=== PATIENT | male | born 2000 | race Two or more races ===

== ENCOUNTER 2024-12-21 00:29 | Emergency (ER) | payer MEDICAID, SELFPAY ==
[2024-12-21 00:32] VITALS: BMI 22.8
[2024-12-21 00:53] VITALS: BP 126/82; PULSE 112; RESP 18; TEMP 37.2; O2SAT 96
--- NOTE | 2024-12-21 00:56 | XR_ITS ---
Examination: Hand, right 3 views Technique: Hand AP, oblique, lateral 3 views Date and time of exam: December 21, 2024 0113 hours INDICATIONS: Patient fell today with injury to the right hand, right hand pain. FINDINGS: Acute fractures distal aspect third metacarpal with minimal angulation at the fracture site Fractures extend to a portion of the metacarpal head. IMPRESSION: Acute fractures distal third metacarpal
--- NOTE | 2024-12-21 00:56 | XR_ITS ---
Examination: Duct and third digit 2 views TECHNIQUE: AP lateral left hand third digit 2 views Date and time: December 21, 2024 0113 hours INDICATIONS: Patient fell today with injury to the hand with third digit pain. FINDINGS: Acute intra-articular fracture distal aspect middle phalanx third digit with 2 mm offset at the fracture site on the AP view No dislocation IMPRESSION: Acute fracture middle phalanx third digit
--- NOTE | 2024-12-21 01:00 | EDNOTE_ITS ---
Upper Extremity Injury RME/HPI General Chief Complaint: Fall Stated Complaint: FALL, I THINK I BROKE MY HANDS Time Seen by Provider: 12/21/24 00:51 Source: patient, RN notes reviewed and old records reviewed Arrival date/time: 12/21/24 00:29 Mode of arrival: ambulatory Limitations: no limitations RME / HPI RME / HPI narrative: 24yom presents to ED for finger and hand pain s/p injury 1 week ago. Patient reports mechanical trip and fall landing on left middle finger and right hand. Pain has not improved over the past week which prompted ED visit tonight. No d eformity reported. 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 Previous Rx's ?Medication ?Instructions ?Recorded ibuprofen 600 mg tablet 600 mg PO Q6H PRN pain #20 t abs 12/21/24 Allergies Allergy/AdvReac Type Severity Reaction Status Date / Time sulfamethoxazole (From Allergy Swelling Verified 12/21/24 00:32 Sulfamethoxazole-Trimethoprim) of Lip/Tongue/Throat trimethoprim (From Allergy Swelling Verified 12/21/24 00:32 Sulfamethoxazole-Trimethoprim) of Lip/Tongue/Throat Review of Systems Review of Systems Systems Reviewed: All systems reviewed, normal except as documented Musculoskeletal Musculoskeletal: Reports arthralgias, Denies deformity, Reports joint swelling, Reports limited range of motion, Denies numbness and Denies tingling Neurologic Neurologic: Denies numbness and Denies tingling Past Medical History Surgical History OTHER SURGICAL HX: denies pshx Social History SMOKING STATUS: Never smoker SUBSTANCE USE: marijuana Past Medical History Comments PMH COMMENT: denies pmhx ED Exam General Limitations: Present no limitations General appearance: Present alert and in no apparent distress Head Head exam: Present atraumatic and normocephalic Eye Eye exam: Present normal appearance, PERRL and EOMI ENT ENT exam: Present normal exam and mucous membranes moist Neck Neck exam: Present normal inspection and full ROM Chest Chest inspection: Present normal inspection and symmetric chest wall rise Respiratory Respiratory exam: Present normal lung sounds bilaterally; Absent respiratory distress Cardiovascular Cardiovascular exam: Present regular rate and normal rhythm Extremities Exam Extremities exam: Present other (Mild tenderness and swelling to DIP of left middle finger and right third MCP. Limited ROM 2/2 pain. <2s cap refill, sensation intact) Neurological Exam Neurological exam: Present alert and oriented X3 Psychiatric Psychiatric exam: Present normal affect and normal mood Skin Skin exam: Present warm, dry, intact and normal color Course Quality Measures none Orders Category Date Time Status Splint / Immobilizer STAT Care 12/21/24 01:30 Completed Splint / Immobilizer STAT Care 12/21/24 01:30 Completed XR finger LT min 2V Stat Exams 12/21/24 00:56 Taken XR hand comp RT min 3V Stat Exams 12/21/24 00:56 Taken Vital Signs Vital signs: Vital Signs Temperature 98.9 F 12/21/24 00:53 Pulse Rate 112 H 12/21/24 00:53 Respiratory Rate 18 12/21/24 00:53 Blood Pressure 126/82 12/21/24 00:53 Pulse Oximetry (%) 96 12/21/24 00:53 Oxygen Delivery Method Room Air 12/21/24 00:53 Procedures -ED Procedure Comment Splint 2 Pre fabricated finger protector left middle finger Sensation, movement, circulation intact distal to finger patient tolerated procedure well, condition improved Splint Fabrication: Clinician Made Type: Other (radial gutter) Reason for Splint: Improve Function, Optimal Positioning, Pain Management, Prevent Deformities and Support Joint/Muscle Circulation Distal to Splint: Yes Movement Distal to Splint: Yes Senation Distal to Splint: Yes Tolerance: Tolerates Well Extremity Injury MDM Narrative MDM Narrative:: 24yom presents to ED for finger and hand pain s/p injury 1 week ago. Patient reports mechanical trip and fall landing on left middle finger and right hand. Pain has not improved over the past week which prompted ED visit tonight. No deformity reported. 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 Patient is neurovascularly intact, compartments soft. Encouraged RICE therapy, Motrin/Tylenol prn pain. Ortho referral given for follow-up and further management. Stable for discharge, RTED precautions given. Patient data External records reviewed:: None (No prior visits) Clinical information provided by:: patient Social determinants that could affect healthcare access:: other (specify) (Poor access to healthcare) Patient has the following chronic illnesses:: none How is presenting disease/condition affected by chronic disease/condition?: no chronic disease Evaluation data The following diagnostics were reviewed and interpreted by me:: radiology exam(s) Lab and/or radiology exams considered but not ordered:: None Interpretation Summary: Finger x-rays: Fracture of distal middle phalanx of third finger Hand x-rays: Fracture of distal third metacarpal Medications / Prescriptions Medications or Prescriptions considered but not ordered:: None Medication administrations:: None Consultations Consultation(s) initiated? (list below): No Diagnosis Upper Extremity Injury Differential Diagnosis: other (Fracture, sprain, strain, contusion, dislocation, MSK pain) Most likely diagnosis given after review of the tests above:: Finger fracture, hand fracture Admission Indicated Admission indicated?: not indicated Admission Request Was there a request for admission?: No Disposition Plan Disposition Plan: Discharge Discharge Attestation Discharge Attestation: The patient and all family members were given an opportunity to ask questions and understood the discharge instructions. Discharge instructions specifically effects, indications for sooner follow up or return to the emergency department, and the expected course of current diagnosis. Patient condition: Stable Discharge Plan Plan Patient Disposition: HOME (Self Care) Patient condition on transfer: Stable Prescriptions/Referrals Prescriptions/Med Rec: New ibuprofen 600 mg tablet 600 mg PO Q6H PRN (Reason: pain) Qty: 20 0RF Referrals: No Primary/Family,Physician [Primary Care Provider] - In 1 week Andriy Contreras MD [Physician] - (Call to schedule an appointment for a visit) Problem List Clinical Impression: Fracture of finger, middle phalanx, left, closed, Fracture of third metacarpal bone of right hand Patient/Caregiver Discharge Instructions Education Materials: ED Fracture, Finger, Closed, ED Closed Hand Fracture (Adult) Print Language: Kyrgyz Stand Alone Forms: Yesys Award Info., Work/School Release, Patient Portal Info Letter DENZEL/SUJATHA Supervising Physician DENZEL/SUJATHA Supervising Physician: Ousmane
== END 2024-12-21 02:00 | disposition home or self-care (01) ==
PROVIDERS: Emergency Provider Emergency Medicine
DX: S62.633A Displaced fracture of distal phalanx of left middle finger, initial encounter for closed fracture (principal); S92.331A Displaced fracture of third metatarsal bone, right foot, initial encounter for closed fracture; W01.0XXA Fall on same level from slipping, tripping and stumbling without subsequent striking against object, initial encounter
CPT/HCPCS: 29125; 73130; 73140; 99283